=== PATIENT | female | born 1995 | race Caucasian/White ===

== ENCOUNTER → 2018-10-12 17:04 | Outpatient (CLI) | payer OTHER, SELFPAY ==
[2018-10-12 13:58] VITALS: BMI 28.5
[2018-10-12 18:52] LABS: Chlamydia Trachomatis by PCR Negative (Negative); Neisserai gonorrhoeae by PCR Negative (Negative); Probe Check PASS; Sample Adequacy Control PASS; Specimen Processing Control PASS
[2018-10-15 13:04] LABS: HPV Reflexed? NOT INDICATED
== END ==
PROVIDERS: Referring Provider Nurse Practitioner Women's Health; Visit Provider Nurse Practitioner Women's Health
DX: Z11.3 Encounter for screening for infections with a predominantly sexual mode of transmission (principal); Z12.4 Encounter for screening for malignant neoplasm of cervix; Z01.419 Encounter for gynecological examination (general) (routine) without abnormal findings
CPT/HCPCS: 87491; 87591; 87624; 88175; G0145